=== PATIENT | female | born 2000 | race Two or more races ===

== ENCOUNTER 2024-07-08 00:31 | Observation (INO) | payer MEDICAID, SELFPAY ==
[2024-07-08 00:37] VITALS: BP 112/59; PULSE 72; RESP 16; RESP 99; TEMP 36.8; BMI 22.4
[2024-07-08 00:44] VITALS: BP 112/59; PULSE 72
--- NOTE | 2024-07-08 01:17 | XR_ITS ---
Examination: Complete OB ultrasound greater than 14 weeks Date and time of exam: July 08, 2024 0137 hours INDICATIONS: Labor evaluation, pelvic contractions beginning yesterday at 7:00 AM Findings: Viable intrauterine single fetus with single amniotic sac presentation cephalic spine anterior Cardiac motion 178 BPM Placenta fundal grade 2 Umbilical cord insertion seen Amniotic fluid index 14 cm spine anterior Cervix 3.6 cm Right ovary 3.5 cm arterial flow Left ovary 2.5 cm arterial flow. Composite estimated gestational age based on BPD, head circumference, abdominal circumference, femur length is 30 weeks 2 days Estimated weight 1473.7 g. Survey of intracranial anatomy, spinal anatomy, abdominal anatomy, four-chamber heart performed with no abnormalities identified. Impression: Viable intrauterine gestation cephalic presentation.
[2024-07-08 01:46] LABS: Basophils # (Auto) 0.1 Thou/mm3 (0.0-0.2); Basophils % (Auto) 1 % (0-2.5); Eosinophils # (Auto) 0.2 Thou/mm3 (0.0-0.5); Eosinophils % (Auto) 2 % (0-10); Hematocrit 25.9 % (36.0-46.0); Immature Granulocytes % (Auto) 1 % (0-0); Immature Granulocytes Auto 0.06 Thou/mm3 (0.00-0.00); Lymphocytes # (Auto) 2.6 Thou/mm3 (1.0-4.8); Lymphocytes % (Auto) 24 % (10-50); Mean Corpuscular HGB Conc 33.2 g/dl (31.0-37.0); Mean Corpuscular Hemoglobin 25.7 pg (25.0-35.0); Mean Corpuscular Volume 77 fL (80-100); Monocytes # (Auto) 0.8 Thou/mm3 (0.0-0.8); Monocytes % (Auto) 8 % (0-12); Neutrophils # (Auto) 7.2 Thou/mm3 (1.8-7.7); Neutrophils % (Auto) 66 % (37-80); Nucleated Red Blood Cell % 0 /100 WBC (0); Platelet Count 181 Thou/mm3 (140-440); RDW Standard Deviation 35.6 fL (36.4-46.3); Red Blood Count 3.35 Miln/mm3 (4.00-5.20); White Blood Count 10.9 Thou/mm3 (3.6-11.0)
[2024-07-08 01:51] LABS: Hemoglobin 8.6 g/dL (12.0-16.0)
[2024-07-08 02:26] LABS: Hepatitis B Surface Antigen Non Reactive (Non React); Rubella, IgG Antibody NonReact(Not Immune)
--- NOTE | 2024-07-08 02:37 | PRELIM_ITS ---
Obstetric ultrasound. July 08, 2024 at 0137 hours Clinical history: Drop in, no care. No prior study is available for comparison. Findings: There is a gravid uterus with a live fetus in cephalic presentation of mean gestational age 30 weeks and 2 days. cardiac activity is present at a heart rate of 178 beats per minute. The placenta is anterior in location. There is no evidence of placenta previa or retroplacental hemorrhage. Amniotic fluid index is 14 cm. Estimated weight is 1473 grams+/- 218 grams. The cervical length measures 3.6 cm. The right ovary measures 3.5 x 1.6 x 3 cm. The left ovary measures 2.5 x 1.8 x 1.9 cm. Both ovaries demonstrate color flow and spectral waveforms on Doppler evaluation. Impression: Gravid uterus with a single live fetus in cephalic presentation of mean gestational age 30 weeks and 2 days. Report Electronically Signed By: Logan Mendez 07/08/2024 2:36:28 AM [EST]
[2024-07-08 03:09] LABS: Amphetamine/Metham Scrn,Ur OB Negative (Negative); Benzoylecgonine Screen, Ur OB Negative (Negative); Opiate Screen,Urine OB Negative (Negative); THC Screen,Urine OB Negative (Negative)
[2024-07-08] MEDS: FERRIC SOD GLUC INJ 125 MG in SODIUM CHLORIDE 0.9% 100 ML 110 MG IV (03:13)
[2024-07-08 04:50] LABS: HIV (1&2) Antibody Rapid Non-Reactive
[2024-07-08 07:06] LABS: Syphilis Nonreactive (Nonreactive)
[2024-07-08 08:39] LABS: Chlamydia trachomatis PCR Positive (Not Detect); Neisseria Gonorrhoeae DNA PCR Negative (Not Detect); Trichomonas Negative (Negative)
--- NOTE | 2024-07-08 16:17 | ESPR_ITS ---
Documentation for date of: 07/08/24 OB Labor Progress Note Pelvic Exam Dilation (cm): 1 Effacement (%): THICK station: -4 Amniotic membrane status: Intact Contractions Monitor mode: External Contraction frequency: NONE Status status: Category l Assessment and Plan Comments: Triage Note Tiffanie is a 23yo with SIUP at 36wk(?) per patient presenting to L&D for normal discomforts of - wanting to see how close I am to delivering and make sure baby is ok . She is not sure of EDC, but she states she thinks LMP was at the end of November, which would be more consistent with 30+ weeks. No lof, no vaginal bleeding, no ctx pattern. Normal movement. Previous pregnancies: history of 2 prior uncomplicated vaginal delivery at term Current complicated by: -Insufficient care. Last OB visit in another city (before she moved to this area) was [place]. Patient plans to deliver here at [facility], but hasn't tried to access care here yet. -Patient states had anatomy scan at 23wk, but was never given the results -Hx of substance abuse disorder, has been on methadone for 3 years -Anemia (diagnosed today) -Rubella non-immune (diagnosed today) -Chlamydia (diagnosed today) ROS negative other than what was described above. Vitals wnl, afebrile General: well developed, well nourished, no acute distress, conversant Cardiac: normal heart rate Lungs: breathing without distress Abdomen: soft, gravid, non-tender, no rebound or guarding Extremities: no edema of BLE SCE: 1/thick/high NST: Reactive, +accels, no decels, mod too [place]: no ctx pattern Labs 07/08/24: Hgb 8.6, plt 181 UDS negative Syphilis: non-reactive Hep Bs ag: non-reactive HIV: non-reactive Rubella: non-immune Chlamydia: positive Gonorrhea: negative Trichomonas: negative OB Ultrasound: Date and time of exam: July 08, 2024 0137 hours INDICATIONS: Labor evaluation, pelvic contractions beginning yesterday at 7:00AM Findings: Viable intrauterine single fetus with single amniotic sac presentation cephalic spine anterior Cardiac motion 178 BPM Placenta fundal grade 2 Umbilical cord insertion seen Amniotic fluid index 14 cm spine anterior Cervix 3.6 cm Right ovary 3.5 cm arterial flow Left ovary 2.5 cm arterial flow. Composite estimated gestational age based on BPD, head circumference, abdominal circumference, femur length is 30 weeks 2 days Estimated weight 1473.7 g. Survey of intracranial anatomy, spinal anatomy, abdominal anatomy, four-chamber heart performed with no abnormalities identified. Impression: Viable intrauterine gestation cephalic presentation. Assessment: Tiffanie is a 23yo with SIUP at unknown gestational age (patient stated 36wk but growth scan c/w 30w2d and this is more consistent with LMP at the end of November ) with no evidence of labor based on SCE and toco. Vitals wnl, benign exam. Reassuring status. New diagnosis of anemia (iron infusion recommended and patient accepted) and chlamydia. Plan: -Discussed findings and diagnosis with patient -Iron infusion performed today for Hgb 8.6, well tolerated. Rx oral iron and colace. -Rx azithromycin 1g PO x1 for chlamydia. She will need test of cure in 1 month. -Patient instructed to return on 07/10 for NST visit and to bring records to confirm gestational age by ultrasound performed earlier in . There is no way to fully determine if there is IUGR at this time without the records (though suspicion is low), but status is reassuring today with reactive NST and adequate HATTIE. -Patient to establish care with OBGYN in the area. Discussed CN not accepting new patients, but she can try the [facility] practice. Phone number provided. -Safe for discharge home at this time Maricarmen Carroll MD
== END 2024-07-08 04:40 | disposition home or self-care (01) ==
PROVIDERS: Admitting Provider Obstetrics & Gynecology; Visit Provider Obstetrics & Gynecology
DX: O47.03 False labor before 37 completed weeks of gestation, third trimester (principal); Z3A.30 30 weeks gestation of pregnancy
CPT/HCPCS: 36415; 59025; 59899; 76805; 80307; 85025; 86703; 86762; 86780; 86850; 86900; 86901; 87081; 87340; 87491; 87591; 87661; J2916; J7050

== ENCOUNTER 2024-07-21 07:06 | Emergency (ER) | payer MEDICAID, SELFPAY ==
[2024-07-21 07:07] VITALS: BMI 22.3
[2024-07-21 07:17] VITALS: BP 106/59; PULSE 80; RESP 17; TEMP 37.1; O2SAT 98; BMI 22.3
--- NOTE | 2024-07-21 07:26 | EDNOTE_ITS ---
ED Dental RME/HPI General Chief complaint: Dental/Oral/Throat Stated complaint: DENTAL PAIN X2D Time Seen by Provider: 07/21/24 07:24 Source: patient Arrival date/time: 07/21/24 07:06 23-year-old female with no known medical history presents to the emergency room with a chief complaint of dental pain x 2 days Mode of arrival: ambulatory Limitations: no limitations Related Data Previous Rx's ?Medication ?Instructions ?Recorded azithromycin 1 gram oral packet 1 g PO .once #1 ea docusate sodium 100 mg capsule 100 mg PO QDAY #30 caps 07/08/24 (Colace) ferrous sulfate 325 mg (65 mg 325 mg PO QDAY #30 tabs 07/08/24 iron) tablet clindamycin HCl 300 mg capsule 300 mg PO TID 7 days #2 1 caps 07/21/24 ibuprofen 600 mg tablet 600 mg PO Q8H PRN fever or p ain 07/21/24 #20 tabs Allergies Allergy/AdvReac Type Severity Reaction Status Date / Time No Known Allergies Allergy Verified 07/21/24 07:09 Review of Systems Review of Systems Systems Reviewed: All systems reviewed, normal except as documented Constitutional Constitutional: Reports system reviewed and no additional complaints, except as documented, Denies fatigue, Denies fever(s), Denies headache(s) and Denies weakness Eyes Eyes: Reports system reviewed and no additional complaints, except as documented, Denies blurry vision and Denies change in vision ENT Ears, Nose, Mouth, and Throat: Reports system reviewed and no additional complaints, except as documented, Reports dental pain, Denies otalgia, Denies headache(s), Denies nasal congestion, Denies throat swelling and Denies vertigo Cardiovascular Cardiovascular: Reports system reviewed and no additional complaints, except as documented, Denies chest pain, Denies dyspnea and Denies dyspnea on exertion Respiratory Respiratory: Reports system reviewed and no additional complaints, except as documented, Denies chest congestion, Denies cough, Denies dyspnea, Denies dyspnea on exertion and Denies wheezing Gastrointestinal Gastrointestinal: Reports system reviewed and no additional complaints, except as documented, Denies abdominal pain, Denies cramping, Denies nausea and Denies vomiting Genitourinary Genitourinary: Reports system reviewed and no additional complaints, except as documented Musculoskeletal Musculoskeletal: Reports system reviewed and no additional complaints, except as documented and Denies back pain Integumentary/Breasts Skin/Breast: Reports system reviewed and no additional complaints, except as documented and Denies wounds Neurologic Neurologic: Reports system reviewed and no additional complaints, except as documented, Denies confusion, Denies headache(s), Denies lack of coordination, Denies vertigo and Denies weakness Psychiatric Psychiatric: Reports system reviewed and no additional complaints, except as documented, Denies anxiety, Denies confusion, Denies depression, Denies paranoia, Denies suicidal ideation and Denies tactile hallucinations Endocrine Endocrine: Reports system reviewed and no additional complaints, except as documented and Denies fatigue Hematologic/Lymphatic Hematologic/Lymphatic: Reports system reviewed and no additional complaints, except as documented and Denies lymphadenopathy Allergic/Immunologic Allergic/Immunologic: Reports system reviewed and no additional complaints, except as documented, Denies throat swelling, Denies urticaria and Denies wheezing Past Medical History Social History SMOKING STATUS: Never smoker ED Exam General Limitations: Present no limitations General appearance: Present alert and in no apparent distress Head Head exam: Present atraumatic Eye Eye exam: Present normal appearance, PERRL and EOMI ENT ENT exam: Present normal exam, normal oropharynx and mucous membranes moist Expanded ENT Exam External ear exam: Present normal external inspection Mouth exam: Present normal external inspection Teeth exam: Present fractured tooth # and dental tenderness # Teeth numbered: 2 1. Fractured and Dental Tenderness Neck Neck exam: Present normal inspection, full ROM and trachea midline Chest Chest inspection: Present normal inspection and symmetric chest wall rise Respiratory Respiratory exam: Present normal lung sounds bilaterally; Absent respiratory distress, wheezes, stridor, accessory muscle use or prolonged expiratory phase Cardiovascular Cardiovascular exam: Present regular rate, normal rhythm and normal heart sounds Abdominal Exam Abdominal exam: Present soft and normal bowel sounds Extremities Exam Extremities exam: Present normal inspection and full ROM Back Exam Back exam: Present normal inspection and full ROM Neurological Exam Neurological exam: Present alert, oriented X3 and CN II-XII intact Psychiatric Psychiatric exam: Present normal affect and normal mood Skin Skin exam: Present warm, dry, intact and normal color Course Quality Measures none Orders Category Date Time Status Ketorolac Inj [Toradol Inj] Med 07/21/24 07:21 Discontinued 30 mg IM X1 ONE Vital Signs Vital signs: Vital Signs Temperature 98.7 F 07/21/24 07:17 Pulse Rate 80 07/21/24 07:17 Respiratory Rate 17 07/21/24 07:17 Blood Pressure 106/59 L 07/21/24 07:17 Pulse Oximetry (%) 98 07/21/24 07:17 Oxygen Delivery Method Room Air 07/21/24 07:17 Dental / Oral MDM Narrative MDM Narrative:: 23-year-old female with no known medical history presents to the emergency room with a chief complaint of dental pain x 2 days Patient is hemodynamically stable and in no apparent distress She is afebrile not tachycardic not tachypneic Physical examination shows tenderness and pain to tooth #18 and 19. It is the left lower molars. Tooth #18 is fractured. Patient states he fractured while eating. Antibiotics were given to the patient as well as pain medication and patient was educated to follow-up with her dentist Patient was discharged and educated to follow-up with primary care provider in the next 24 to 48 hours and return to the emergency room for any evidence of worsening signs or symptoms Patient data External records reviewed:: [facility] previous records Clinical information provided by:: patient Social determinants that could affect healthcare access:: none Patient has the following chronic illnesses:: No chronic illness How is presenting disease/condition affected by chronic disease/condition?: no chronic disease Evaluation data The following diagnostics were reviewed and interpreted by me:: lab results and radiology exam(s) Lab and/or radiology exams considered but not ordered:: Labs and radiology exams considered in order Interpretation Summary: N/A Medications / Prescriptions Medications or Prescriptions considered but not ordered:: Medication given Medication administrations:: Medication Administration History Discontinued Medications Ketorolac Tromethamine (Ketorolac Inj 60 Mg/2 Ml Vial) 30 mg IM X1 ONE Stop: 07/21/24 07:22 Medication given Consultations Consultation(s) initiated? (list below): No Diagnosis Dental Differential Diagnosis: dental caries, toothache and dental abscess Most likely diagnosis given after review of the tests above:: Toothache Admission Indicated Admission indicated?: not indicated Admission Request Was there a request for admission?: No Disposition Plan Disposition Plan: Discharge Discharge Attestation Discharge Attestation: The patient and all family members were given an opportunity to ask questions and understood the discharge instructions. Discharge instructions specifically effects, indications for sooner follow up or return to the emergency department, and the expected course of current diagnosis. Patient condition: Stable Discharge Plan Plan Patient Disposition: HOME (Self Care) Prescriptions/Referrals Prescriptions/Med Rec: New clindamycin HCl 300 mg capsule 300 mg PO TID 7 Days Qty: 21 0RF ibuprofen 600 mg tablet 600 mg PO Q8H PRN (Reason: fever or pain) Qty: 20 0RF No Action ferrous sulfate 325 mg (65 mg iron) tablet 325 mg PO QDAY Qty: 30 0RF docusate sodium [Colace] 100 mg capsule 100 mg PO QDAY Qty: 30 0RF azithromycin 1 gram packet 1 g PO .once Qty: 1 0RF Problem List Clinical Impression: Toothache Patient/Caregiver Discharge Instructions Education Materials: ED Dental Pain Additional Instructions: Please follow-up with your primary care provider in the next 24 to 48 hours You will need to see your dentist to fix your toothache. You have a chipped tooth in the left lower molar. This is a cause of your symptoms For any evidence of worsening signs or symptoms return to the emergency room immediately Print Language: Thai Stand Alone Forms: Brittnee Award Info., Work/School Release, Patient Portal Info Letter SID/STEPH Supervising Physician SID/STEPH Supervising Physician: Dr Thomas
[2024-07-21] MEDS: KETOROLAC INJ 60 MG/2 ML VIAL 30 MG IM (07:31)
== END 2024-07-21 09:02 | disposition home or self-care (01) ==
PROVIDERS: Emergency Provider Emergency Medicine
DX: K08.89 Other specified disorders of teeth and supporting structures (principal)
CPT/HCPCS: 96372; 99283; J1885

== ENCOUNTER 2024-08-07 21:38 | Observation (INO) | payer MEDICAID, SELFPAY ==
[2024-08-07] VITALS (8 sets, daily range): BP systolic 0–109; BP diastolic 0–64; PULSE 60–101; RESP 16–98; TEMP 37; BMI 23.1
[2024-08-07] MEDS: TERBUTALINE SULF INJ 1 MG/ML VIAL 0.25 MG SC (23:25)
--- NOTE | 2024-08-08 08:32 | ESPR_ITS ---
Documentation for date of: 08/08/24 OB Labor Progress Note Pelvic Exam Dilation (cm): 1 Effacement (%): thick station: -4 Amniotic membrane status: Intact Contractions Monitor mode: External Contraction frequency: 7-14 Contraction pattern: Tetanic Contraction intensity: Mild Status status: Category l Assessment and Plan Comments: Triage Note Tiffanie is a 23yo with SIUP at approx 34wk (LMP end of November ) presenting to L&D for ctx. Wonders if she lost some of her mucous plug. No lof, no vaginal bleeding, no ctx pattern. Normal movement. She presented a month ago to L&D to check in on baby since she had gap in care since moving here from another city. OB panel was completed and chlamydia positive, so she was treated with azithromycin. Anemia was also diagnosed and she was given an IV iron infusion and started on oral iron. She was instructed at that time to establish care at [facility] ob clinic, but has not yet done so. Previous pregnancies: history of 2 prior uncomplicated vaginal delivery at term Current complicated by: -Insufficient care. Last OB visit in another city (before she moved to this area) was [place]. Patient plans to deliver here at [facility], but hasn't tried to access care here yet. -Patient states had anatomy scan at 23wk, but was never given the results -Hx of substance abuse disorder, has been on methadone for 3 years -Anemia diagnosed 07/08, s/p IV iron infusion and started on oral iron -Rubella non-immune -Chlamydia diagnosed 07/08, s/p azithromycin ROS negative other than what was described above. Vitals wnl, afebrile General: well developed, well nourished, no acute distress, conversant Cardiac: normal heart rate Lungs: breathing without distress Abdomen: soft, gravid, non-tender, no rebound or guarding SCE: 1/thick/high NST: Reactive, +accels, no decels, mod too [place]: irregular ctx Labs 08/08/24: vaginitis swab: pending Labs 07/08/24: Hgb 8.6, plt 181 UDS negative Syphilis: non-reactive Hep Bs ag: non-reactive HIV: non-reactive Rubella: non-immune Chlamydia: positive Gonorrhea: negative Trichomonas: negative GBS positive swab OB Ultrasound: Date and time of exam: July 08, 2024 0137 hours INDICATIONS: Labor evaluation, pelvic contractions beginning yesterday at 7:00AM Findings: Viable intrauterine single fetus with single amniotic sac presentation cephalic spine anterior Cardiac motion 178 BPM Placenta fundal grade 2 Umbilical cord insertion seen Amniotic fluid index 14 cm spine anterior Cervix 3.6 cm Right ovary 3.5 cm arterial flow Left ovary 2.5 cm arterial flow. Composite estimated gestational age based on BPD, head circumference, abdominal circumference, femur length is 30 weeks 2 days Estimated weight 1473.7 g. Survey of intracranial anatomy, spinal anatomy, abdominal anatomy, four-chamber heart performed with no abnormalities identified. Impression: Viable intrauterine gestation cephalic presentation. Assessment: Tiffanie is a 23yo with SIUP at approximately 34wk with no evidence of pre-term labor based on SCE. Vitals wnl, benign exam. Reassuring status. Vaginitis swab obtained. Plan: -Patient to establish care with [facility] ob clinic, contact info provided in discharge summary -Will call with results of vaginitis swab (the one ordered does not test for chlamydia, so she will still need test of cure when she initiates care in clinic) -Continue iron with PNV -Safe for discharge home at this time Maricarmen Carroll MD
== END 2024-08-08 00:12 | disposition home or self-care (01) ==
PROVIDERS: Admitting Provider Obstetrics & Gynecology; Visit Provider Obstetrics & Gynecology
DX: O47.03 False labor before 37 completed weeks of gestation, third trimester (principal); Z3A.34 34 weeks gestation of pregnancy
CPT/HCPCS: 59025; 59899; 81514; 96372; J3105

== ENCOUNTER 2024-08-25 12:06 | Observation (INO) | payer MEDICAID, SELFPAY ==
[2024-08-25] VITALS (10 sets, daily range): BP systolic 99–110; BP diastolic 50–66; PULSE 63–92; RESP 16–99; TEMP 36.6; O2SAT 97–99; BMI 23.3
[2024-08-25 13:33] LABS: Amphetamine/Metham Scrn,Ur OB Negative (Negative); Benzoylecgonine Screen, Ur OB Negative (Negative); Opiate Screen,Urine OB Negative (Negative); THC Screen,Urine OB Negative (Negative)
[2024-08-25 16:35] LABS: Chlamydia trachomatis PCR Negative (Not Detect); Neisseria Gonorrhoeae DNA PCR Negative (Not Detect); Trichomonas Negative (Negative)
== END 2024-08-25 14:35 | disposition home or self-care (01) ==
PROVIDERS: Admitting Provider Obstetrics & Gynecology; PCP Family Medicine; Visit Provider Obstetrics & Gynecology
DX: O26.893 Other specified pregnancy related conditions, third trimester (principal); Z3A.37 37 weeks gestation of pregnancy; R10.9 Unspecified abdominal pain
CPT/HCPCS: 59025; 59899; 80307; 87491; 87591; 87661

== ENCOUNTER 2024-09-12 09:40 | Inpatient (IN) | payer MEDICAID, SELFPAY ==
[2024-09-12] VITALS (16 sets, daily range): BP systolic 92–117; BP diastolic 55–69; PULSE 55–81; RESP 16–99; TEMP 36.5–36.9; O2SAT 97–99; BMI 24.2
[2024-09-12] MEDS: RINGERS LACTATED 1000 ML 1,000 ML 100 ML IV (10:50)
[2024-09-12] MEDS: Ampicillin Inj 2,000 MG in SODIUM CHLORIDE 0.9% (POP) 100 ML 200 MG IV (11:07)
[2024-09-12] MEDS: fentaNYL CIT INJ 50 mCg/ML AMP 2ML 100 MCG IVP (11:09)
[2024-09-12 11:25] LABS: Basophils # (Auto) 0.1 Thou/mm3 (0.0-0.2); Basophils % (Auto) 1 % (0-2.5); Eosinophils # (Auto) 0.4 Thou/mm3 (0.0-0.5); Eosinophils % (Auto) 4 % (0-10); Hematocrit 27.0 % (36.0-46.0); Immature Granulocytes Auto 0.06 Thou/mm3 (0.00-0.00); Lymphocytes # (Auto) 2.6 Thou/mm3 (1.0-4.8); Lymphocytes % (Auto) 24 % (10-50); Mean Corpuscular HGB Conc 31.1 g/dl (31.0-37.0); Mean Corpuscular Hemoglobin 23.4 pg (25.0-35.0); Mean Corpuscular Volume 75 fL (80-100); Monocytes # (Auto) 0.8 Thou/mm3 (0.0-0.8); Monocytes % (Auto) 7 % (0-12); Neutrophils # (Auto) 6.7 Thou/mm3 (1.8-7.7); Neutrophils % (Auto) 63 % (37-80); Nucleated Red Blood Cell # 0.00 Thou/mm3 (0.00-0.00); Nucleated Red Blood Cell % 0 /100 WBC (0); Platelet Count 201 Thou/mm3 (140-440); RDW Standard Deviation 40.2 fL (36.4-46.3); Red Blood Count 3.59 Miln/mm3 (4.00-5.20); White Blood Count 10.5 Thou/mm3 (3.6-11.0)
[2024-09-12 11:27] LABS: Hemoglobin 8.4 g/dL (12.0-16.0)
[2024-09-12] MEDS: LIDOCAINE HCL 1% 20 ML VIAL INFL (11:49)
[2024-09-12] MEDS: OXYTOCIN in NS 20 units 20 UNIT/1,000 ML BAG 125 UNIT IV (11:49)
[2024-09-12] MEDS: KETOROLAC INJ 30 MG/ML VIAL IVP (11:53)
[2024-09-12] MEDS: BENZO/LANO/ALOE (Dermoplast) 60 GM CAN 1 SPRAY TOP (11:53)
[2024-09-12 12:12] LABS: Rubella, IgG Antibody NonReact(Not Immune); Syphilis Nonreactive (Nonreactive)
--- NOTE | 2024-09-12 12:14 | PD.LDHP ---
Documentation for date of: 09/12/24 OB Labor/Induct. HPI History of Present Illness Chief complaint: Active labor : 3 Para: 2 Term pregnancies: 2 pregnancies: 0 Living children: 2 History of Abortions: Spontaneous and Elective: 0 History of Vaginal deliveries: 2 History of sections: No History of : No JAMEY: 09/14/24 Gestational Age (weeks): 39 Gestational Age (days): 5 History of present illness: Patient is a 23-year-old -0-0-2 with limited care who came in to triage in active labor. She had a visit at 28 weeks and a couple of other visits in [place]. No records were available on presentation so all her panel was drawn. She was 4 cm when she was in triage about 9:45 in the morning and was admitted about an hour later. She rapidly went on to progress to complete and pushed a baby out by about an hour after presentation. Group B strep was unknown and she was given 1 dose of ampicillin. History of Present Dating criteria: based on 3rd trimester US only Adequate Care: No Obstetrical complications: other (History of drug use on methadone) Narrative: Limited care. H/O Drug use, on methadone. Labs Maternal Blood Type: B Pos Labs: Unknown: RPR, Hepatitis B, Rubella Titre, HIV, Chlamydia, Gonorrhea, Herpes Type 1, Herpes Type 2, Group Beta Strep and Covid-19 Narrative: labs were drawn 08/10/24 revealing RPR to be negative hepatitis B negative rubella immune HIV negative her chlamydia was positive and she has an unknown group B strep still on she had a repeat chlamydia that was negative. All labs from this visit are still pending. Past Medical History Surgical History SURGICAL: Negative Section Meds Home Medications and Allergies Home Medications ?Medication ?Instructions ?Recorded ?Confirmed ?Type methadone 105 mg PO DAILY 08/07/24 09/12/24 History Allergies Allergy/AdvReac Type Severity Reaction Status Date / Time No Known Allergies Allergy Verified 09/12/24 10:21 OB Exam Physical Exam Vital signs: Temp Pulse Resp BP Pulse Ox O2 Del Method 97.7 F 75 16 92/55 L 99 Room Air 09/12/24 10:19 09/12/24 12:03 09/12/24 10:19 09/12/24 12:03 09/12/24 10:19 09/12/24 10:19 Detailed Labor and Delivery Exam Cervix position: mid station: -2 Consistency: medium Presentation: Vertex Membranes: intact monitor accelerations: 15x15 monitor decelerations: None medical terminologist variability: Moderate (11-25) Contraction frequency (min): Every 3 min Tachysystole: No Contraction intensity: Strong OB Results Labs 09/12/24 11:14 Labs: Short CBC 09/12/24 Range/Units 11:14 WBC 10.5 (3.6-11.0) Thou/mm3 Hgb 8.4 L (12.0-16.0) g/dL Hct 27.0 L (36.0-46.0) % Plt Count 201 (140-440) Thou/mm3 OB Assessment & Plan Assessment and Plan (1) Supervision of high risk in third trimester: Status: Acute (2) Methadone maintenance treatment affecting : Status: Acute Assessment and plan: Will continue on her methadone maintenance therapy Additional Plan Induction method: none Plan: anticipate NVD and GBS prophylaxis tx (2) Methadone maintenance treatment affecting Qualifiers: Trimester: third trimester Qualified Code(s): O99.323 - Drug use complicating , third trimester; F11.20 - Opioid dependence, uncomplicated
--- NOTE | 2024-09-12 12:28 | PD.LDDELS ---
Data (Becerra) Data Hx Section: No Maternal Blood Type: B Pos Rubella Titre: Positive RPR: Non-reactive Labs: Negative: RPR, Hepatitis B and HIV and Unknown: Chlamydia, Gonorrhea and Group Beta Strep : 3 Term: 2 : 0 Livin Abortions: Spontaneous & Theraputic: 0 Delivery Data (Becerra) Labor Data Initiation of labor: Spontaneous Induction/Augmentation Agent: None ROM date: 09/12/24 ROM time: 11:15 Amniotic membrane rupture type: Artificial Amniotic fluid description: Clear Delivery Data EDC: 09/12/24 EDC calculated by:: ultrasound (28-week ultrasound) Date of arrival to unit: 09/12/24 Time of arrival to unit: 09:45 Onset of labor date: 09/12/24 Onset of labor time: 05:00 Complete dilation date: 09/12/24 Complete dilation time: 11:41 Rufus delivery date: 09/12/24 Rufus delivery time: 11:43 Gestational age (weeks): 38 Gestational age (days): 3 Placenta delivery date: 09/12/24 Placenta delivery time: 11:47 Stage 1 total time: Labor - Stage 1 Duration 6 hours and 41 minutes Delivered by: Delivery nurse: penny benjamin [place]orn nurse: vignesh benjamin Continuous Mining Machine Operator at delivery: No Support person(s) at delivery: fob and pt mother Other staff at delivery: smita benjamin charge Delivery Method Delivery method: Normal Vaginal Delivery Presentation: Vertex position: OA Anesthesia Type Anesthesia Type: Local and other (Patient got 1 dose of IV fentanyl prior to delivery) Anesthesia type: Local Delivery Room Medications Delivery room medications: Lidocaine (local) and Pitocin 20 u IV Placenta Placenta delivery description: Spontaneous Cord blood sent to lab: Yes cord blood collection: Cord Blood Type Episiotomy Episiotomy description: None Lacerations #1: Perineal: 1st degree Perineal repair Sutures used for repair: 4.0 Chromic EBL Estimated blood loss (ml): 150 Umbilical Cord cord description: 3 Vessels Additional Procedures The patient is a 23-year-old -0-0-2 with spotty care this . By her history she is 38-5/7 weeks . Some visits were in [place]. She has a history of drug abuse and is on methadone. She had a 28 week ultrasound and some lab work there. No records were available on presentation. She was here August 10 in triage and the doctor on-call did order a panel which was normal. The patient was positive for chlamydia on August 10 and did receive treatment. She was here August 16 and a chlamydia test of cure was negative. She presents today in active labor. She presented to triage at 9:45 in the morning 3 to 4 cm dilated and she was admitted. She rapidly progressed to complete and pushed through 2-3 contractions delivering a liveborn male at 11:42 AM. Findings: Liveborn male in the [facility] presentation with no nuchal cord and no meconium .Apgars were 9 and 9, weight was 3200 g. The placenta was complete, spontaneous ,grossly normal delivering within 3 minutes of the baby delivering. Right after delivery, the baby was vigorous and placed on mom's chest. The cord was clamped and cut after waiting approximately 2 minutes. Cord gases were saved and cord blood was sent. The patient sustained a very small first-degree perineal laceration repaired under local anesthesia with lidocaine. 1 [id number] suture of 4-0 chromic was used for repair. Complications were none. Condition both mom and infant were in stable condition the delivery room. Of note since patient had almost no care, a strep screen was not done and so she did receive 1 dose of ampicillin prior to delivery. Complications Complications: None Data (Becerra) Rufus Data order: 1 's gender: Male Identification band number: [id number] weight (gms): 3200 g Weight (pounds): 7 lbs and 0.9 ozs length: 56 cm 1 minute: 9 5 minutes: 9
[2024-09-12 12:35] LABS: HIV (1&2) Antibody Rapid Non-Reactive
[2024-09-12] MEDS: ACETAMINOPHEN 325 MG TABLET 650 MG PO (13:32)
[2024-09-12 14:09] LABS: Hepatitis B Surface Antigen Non Reactive (Non React)
[2024-09-12 16:27] LABS: Amphetamine/Metham Scrn,Ur OB Negative (Negative); Benzoylecgonine Screen, Ur OB Positive (Negative); Opiate Screen,Urine OB Negative (Negative); THC Screen,Urine OB Negative (Negative)
[2024-09-12 16:28] LABS: Benzoylecoginine U Confirm* See Sep Rpt
[2024-09-12 19:10] LABS: Basophils # (Auto) 0.1 Thou/mm3 (0.0-0.2); Basophils % (Auto) 0 % (0-2.5); Eosinophils # (Auto) 0.1 Thou/mm3 (0.0-0.5); Eosinophils % (Auto) 1 % (0-10); Hematocrit 23.5 % (36.0-46.0); Immature Granulocytes Auto 0.05 Thou/mm3 (0.00-0.00); Lymphocytes # (Auto) 1.7 Thou/mm3 (1.0-4.8); Lymphocytes % (Auto) 12 % (10-50); Mean Corpuscular HGB Conc 31.9 g/dl (31.0-37.0); Mean Corpuscular Hemoglobin 24.0 pg (25.0-35.0); Mean Corpuscular Volume 75 fL (80-100); Monocytes # (Auto) 0.9 Thou/mm3 (0.0-0.8); Monocytes % (Auto) 6 % (0-12); Neutrophils # (Auto) 11.4 Thou/mm3 (1.8-7.7); Neutrophils % (Auto) 80 % (37-80); Nucleated Red Blood Cell # 0.00 Thou/mm3 (0.00-0.00); Nucleated Red Blood Cell % 0 /100 WBC (0); Platelet Count 186 Thou/mm3 (140-440); RDW Standard Deviation 39.0 fL (36.4-46.3); Red Blood Count 3.12 Miln/mm3 (4.00-5.20); White Blood Count 14.1 Thou/mm3 (3.6-11.0)
[2024-09-12 19:11] LABS: Hemoglobin 7.5 g/dL (12.0-16.0)
[2024-09-12] MEDS: IBUPROFEN TAB 400 MG TABLET 800 MG PO (19:22)
[2024-09-12] MEDS: METHADONE 50 MG PO (20:56)
[2024-09-13 00:10] VITALS: BP 114/72; PULSE 76; RESP 18; TEMP 37; O2SAT 97
[2024-09-13] MEDS: HYDROcodone/APAP 5/325 TABLET 1 TAB PO (00:19)
[2024-09-13 04:00] VITALS: BP 114/73; PULSE 60; RESP 18; TEMP 36.8; O2SAT 98
[2024-09-13] MEDS: IBUPROFEN TAB 400 MG TABLET 800 MG PO (04:25)
[2024-09-13 07:30] VITALS: BP 116/76; PULSE 72; RESP 17; TEMP 36.6; O2SAT 99
--- NOTE | 2024-09-13 07:52 | ESPR_ITS ---
Subjective Subjective Interval history: Delivery type: Patient doing well this morning. No acute complaints. Ambulating, tolerating p.o. and voiding without difficulty. HTN/Pre-Eclampsia screen: No chest pain, shortness of breath, headache, visual changes, epigastric or right upper quadrant pain. Breast-feeding, lochia diminishing. Bowel: Flatus+/ BM+ Exam Vital Signs Temp Pulse Resp BP Pulse Ox O2 Del Method 98.2 F 60 18 114/73 98 Room Air 09/13/24 04:00 09/13/24 04:00 09/13/24 04:00 09/13/24 04:00 09/13/24 04:00 09/13/24 04:00 Constitutional Constitutional: no acute distress Routine HEENT Exam Head: Present normocephalic and atraumatic Eye: Present EOMI and PERRL ENT: Present mucous membranes moist Routine Neck Exam Neck: Present supple and trachea midline Routine Respiratory Exam Respiratory: Present chest non-tender, lungs clear, normal breath sounds and no resp distress Routine Cardiovascular Exam Cardiovascular: Present RRR Routine Abdominal Exam Abdominal: Present soft and normoactive bowel sounds Routine Extremities Exam Extremities: Present full ROM Routine Skin Exam Skin: Present intact, dry and warm Routine Neurological Exam Neurological: Present alert, oriented X3 and CN II-XII intact Routine Psychiatric Exam Psychiatric: Present normal affect and normal thought process Objective Labs 09/12/24 18:52 Labs: Laboratory Results - last 24 hr 09/12/24 09/12/24 09/12/24 11:14 16:02 18:52 WBC 10.5 14.1 H RBC 3.59 L 3.12 L Hgb 8.4 L 7.5 L Hct 27.0 L 23.5 L MCV 75 L 75 L MCH 23.4 L 24.0 L MCHC 31.1 31.9 RDW Std Deviation 40.2 39.0 Plt Count 201 186 Neut % (Auto) 63 80 Lymph % (Auto) 24 12 [place] % (Auto) 7 6 Eos % (Auto) 4 1 Baso % (Auto) 1 0 Neut # (Auto) 6.7 11.4 H Lymph # (Auto) 2.6 1.7 [place] # (Auto) 0.8 0.9 H Eos # (Auto) 0.4 0.1 Baso # (Auto) 0.1 0.1 Immature Gran # (Auto) 0.06 H 0.05 H Absolute Nucleated RBC 0.00 0.00 Immature Gran % 1 H 0 Nucleated RBC % 0 0 Urine Opiates Screen Negative U Amphetamin/Meth Scrn Negative U Cocaine Metab Screen Positive A U Marijuana (THC) Screen Negative Syphilis Serology Nonreactive Hep Bs Antigen Non Reactive HIV 1&2 Antibody Rapid Non-Reactive Rubella IgG Antibody NonReact(Not Immune) L Blood Type B Positive Antibody Screen NEGATIVE Blood Bank Wristband ID Yes Assessment & Plan Problem List (1) Supervision of high risk in third trimester: Status: Acute (2) Methadone maintenance treatment affecting : Status: Acute (3) Vaginal delivery: Status: Acute Assessment and plan: 1. Continue routine /post-op care 2. Labs reviewed, cbc appropriate 3. Remove dressing/Bell 4. Encourage to ambulate, shower 5. Encourage PO intake, breast feeding 6. Anticipate discharge home today after she completes 24-hour Time Spent With Patient Time: Total time spent is greater than 50% in coordination of care (as documented) at patient's floor/unit and/or counseling patient:
--- NOTE | 2024-09-13 07:54 | PD.LDDS ---
DS: Providers Provider Date of admission: 09/12/24 10:44 Primary care physician: Physician No Primary/Family Admitting Provider: Annette Watkins [facility] ([facility]) Attending Provider on Admission: Brad Barboza MD Consults: 09/12/24 12:38 Referral Routine Comment: Attending Provider on DC: Brad Barboza MD Discharging Provider: Brad Barboza MD DS: Diagnosis Discharge Diagnosis (1) Vaginal delivery: Status: Acute (2) Methadone maintenance treatment affecting : Status: Acute (3) Supervision of high risk in third trimester: Status: Acute Problem List Completed Was Problem List Reviewed/Reconciled?: Yes Summary/Hosp Course Brief History: Patient is a 23-year-old -0-0-2 with limited care who came in to triage in active labor. She had a visit at 28 weeks and a couple of other visits in [place]. No records were available on presentation so all her panel was drawn. She was 4 cm when she was in triage about 9:45 in the morning and was admitted about an hour later. She rapidly went on to progress to complete and pushed a baby out by about an hour after presentation. Group B strep was unknown and she was given 1 dose of ampicillin. Peripartum Data Delivery Method: Normal Vaginal Delivery Episiotomy Description: None Time Spent with Patient Time attestation: Total time spent providing and/or coordinating discharge services: Exam Vital Signs Temp Pulse Resp BP Pulse Ox O2 Del Method 98.2 F 60 18 114/73 98 Room Air 09/13/24 04:00 09/13/24 04:00 09/13/24 04:00 09/13/24 04:00 09/13/24 04:00 09/13/24 04:00 Discharge Plan Plan Patient Disposition: HOME (Self Care) Patient condition on transfer: Stable Prescriptions/Referrals Prescriptions/Med Rec: New ibuprofen 400 mg Tablet 800 mg PO Q8H PRN (Reason: See Comments) 10 Days Qty: 40 0RF Continued methadone 105 mg PO DAILY Referrals: No Primary/Family,Physician [Primary Care Provider] - Patient/Caregiver Discharge Instructions Print Language: [place] Zealander Stand Alone Forms: Brittnee Award Info., Patient Portal Info Letter Discharge Order Discharge Orders: Discharge (Routine); Ordered 09/13/24 Ordered By: Brad Barboza Planned Discharge Date 09/13/24 (2) Methadone maintenance treatment affecting Qualifiers: Trimester: third trimester Qualified Code(s): O99.323 - Drug use complicating , third trimester; F11.20 - Opioid dependence, uncomplicated
--- NOTE | 2024-09-13 10:00 | PC.NURSE ---
Temi Carreno secondary social studies teacher from [facility] here to see patient
[2024-09-13] MEDS: METHADONE PO (10:14)
--- NOTE | 2024-09-13 10:36 | PC.CC ---
Addendum entered by Nichelle Jacobs 09/13/24 13:55: Tiffanie Deleon [id number]: Mother will discharged today along with the infant. SSWIII/CWS Temi Wai can be reached at [phone] or you can reach her at [phone]. Her smoke jumper supervisor is Natasha Arias and can be reached at [phone]. This case is still being investigated by CWS and said SSWIII/CWS worker.? Addendum entered by Nichelle Jacobs 09/13/24 13:29: Per SSWIII/CWS worker Temi, she stated she will release the pt home with the infant on a Safety Plan and will continue her investigation when the mother is discharged home. At this time, the pt is cleared by CWS to return home. SS at this time has concerns regarding the infant, however, CWS mold release worker Temi will take over the case from here. There is no court order stating the cannot leave home with the mother at this time; therefore, the mother can be discharged with the . Original Note: ASW-Nichelle Jacobs met with patient [id number] to complete assessment. ASW introduced self, role, and reason for assessment. ASW disclosed limits of confidentiality as well. Patient appeared alert and oriented to self, place, and situation. Patient was pleasant; her mood appeared anxious; her behavior appeared nervous and fidgety. Patient?s thought process was linear and organized. No signs of delusions, paranoid or AVH. Upon arrival, the infant was asleep in the bassinet and the pt was laying in her bed. ASW informed pt of the reason for the referral as it was reported by the assigned RN that the pt and test positive for Cocaine and the pt appeared shocked. ASW asked the pt if she could provide the last time she used Cocaine and the pt reported that she hasn't used Cocaine since prior to her . Pt reported, I don't know how I would come up positive because I haven't used. Maybe I was exposed to it by my mom because of all the people she has in and out of the house. Pt reported she did not receive care because she said she could treat herself, and stated she wanted to be surprised with the gender of the infant at delivery. ASW provided education on how the pt and can be affected during without care. Pt then presented with a flat affect. Pt reported she is formula feeding the . Pt reports she is not ready for the infant and maybe has a few baby items. Pt reports she moved to [place] from [place] about 1-2 months ago as she stated she needed support from her mother, whom which she resides with. Pt reports she is 38 weeks at delivery. Pt reports the infants Peds will be Dr. Bermudez from [facility], as someone from the hospital came and spoke with her about scheduling an appointment for the . Pt reports she receives [employer], Food stamps $600, [employer] $1000. Pt reported she is a vaginal delivery and may be discharged later today or tomorrow morning. Pt reports her other children are Marci Cummings age 4 05/07/20 and Anya Cummings age 3 07/21/21. Pt reports the FOB is at work today and his name is Bill Huddleston 07/14/94. At this time there are concerns regarding pt and her ability to care for the while under the influence of Cocaine. ASW contacted [facility] hotline and spoke to on-call health social work professor Savita Lora and reported the concerns. About one hour later, the assigned RN reported the in fact tested positive for Cocaine. ASW contacted [facility] Hotline and provided an update to the already existing report that the infant tested positive for Cocaine. ASW informed CWS that the pt is ready for d/c today or early tomorrow morning. ASW informed S that since the infant is on day 2 for antibiotics to treat syphilis the infant will remain at the hospital for a total of 10-15 days.
[2024-09-13 11:00] VITALS: BP 124/80; PULSE 85; RESP 18; TEMP 36.9; O2SAT 99
[2024-09-13 11:30] LABS: Basophils # (Auto) 0.1 Thou/mm3 (0.0-0.2); Basophils % (Auto) 1 % (0-2.5); Eosinophils # (Auto) 0.5 Thou/mm3 (0.0-0.5); Eosinophils % (Auto) 4 % (0-10); Hematocrit 23.6 % (36.0-46.0); Immature Granulocytes Auto 0.07 Thou/mm3 (0.00-0.00); Lymphocytes # (Auto) 2.4 Thou/mm3 (1.0-4.8); Lymphocytes % (Auto) 23 % (10-50); Mean Corpuscular HGB Conc 31.8 g/dl (31.0-37.0); Mean Corpuscular Hemoglobin 24.1 pg (25.0-35.0); Mean Corpuscular Volume 76 fL (80-100); Monocytes # (Auto) 0.7 Thou/mm3 (0.0-0.8); Monocytes % (Auto) 7 % (0-12); Neutrophils # (Auto) 6.9 Thou/mm3 (1.8-7.7); Neutrophils % (Auto) 65 % (37-80); Nucleated Red Blood Cell # 0.00 Thou/mm3 (0.00-0.00); Nucleated Red Blood Cell % 0 /100 WBC (0); Platelet Count 205 Thou/mm3 (140-440); RDW Standard Deviation 40.2 fL (36.4-46.3); Red Blood Count 3.11 Miln/mm3 (4.00-5.20); White Blood Count 10.6 Thou/mm3 (3.6-11.0)
[2024-09-13 11:56] LABS: Hemoglobin 7.5 g/dL (12.0-16.0)
--- NOTE | 2024-09-13 13:40 | PC.NURSE ---
Spoke to Jackelin in rn social services, ok to discharge with mother, CWS has a safety plan and will follow up
== END 2024-09-13 14:29 | disposition home or self-care (01) | DRG 560 ==
LOC: S4SX 12:22 → S4NX 14:08
PROVIDERS: Admitting Provider Obstetrics & Gynecology; Visit Provider Obstetrics & Gynecology
DX: O99.324 Drug use complicating childbirth (principal); F11.20 Opioid dependence, uncomplicated; O70.0 First degree perineal laceration during delivery; Z37.0 Single live birth; Z3A.39 39 weeks gestation of pregnancy
CPT/HCPCS: 36415; 59025; 80307; 85025; 86703; 86762; 86780; 86850; 86900; 86901; 87081; 87340; 87491; 87591; 87661; J0290; J1885; J2590; J3010; J3490; J7120; A9270